=== PATIENT | male | born 1950 | race Caucasian/White ===

== ENCOUNTER 2020-04-22 11:54 | Outpatient (REF) | payer MEDICARE, SELFPAY | END 2020-04-22 11:55 | disposition home or self-care (01) | LOC: HO.10HDL 11:54 | PROVIDERS: Visit Provider Urology | DX: N40.1 Benign prostatic hyperplasia with lower urinary tract symptoms (principal); Z12.5 Encounter for screening for malignant neoplasm of prostate | CPT/HCPCS: 36415; 84153 ==

== ENCOUNTER → 2020-05-01 15:04 | Outpatient (BNVA) | payer MEDICARE, SELFPAY | PROVIDERS: PCP Internal Medicine; Visit Provider Urology | DX: N40.1 Benign prostatic hyperplasia with lower urinary tract symptoms (principal); N13.8 Other obstructive and reflux uropathy | CPT/HCPCS: 99212 ==

== ENCOUNTER 2020-11-03 16:16 | Outpatient (REF) | payer MEDICARE, SELFPAY ==
--- NOTE | ~2020-11-03 | US_ITS ---
EXAMINATION: US PELVIS LIMITED (BLADDER) CLINICAL INFORMATION: Poor urinary system. COMPARISON: None TECHNIQUE: Real-time imaging of the bladder. FINDINGS: BLADDER: The bladder wall may be slightly thickened. Bilateral ureteral jets are demonstrated. Prevoid bladder volume is 155.5 mL. Postvoid bladder volume is 53 mL. There is abnormal soft tissue seen at the base of the bladder. This probably represents lobulated contour of the prostate gland protruding into the base of the bladder. It is difficult to exclude a bladder mass. This measures 1.8 x 1.5 x 2.5 cm. PROSTATE: Prostate gland measures 2.8 x 3.5 x 2.9 cm, volume 15 mL US/US bladder IMPRESSION: Increased soft tissue at the base of the bladder, question representing lobulated contour prostate gland protruding into the base of the bladder. It is difficult to exclude a bladder mass. Slightly thickened bladder wall and small 53 mL postvoid bladder residual.
== END 2020-11-03 16:17 | disposition home or self-care (01) ==
LOC: HO.US 16:16
PROVIDERS: PCP Physician Assistant Medical; Visit Provider Urology
DX: N40.1 Benign prostatic hyperplasia with lower urinary tract symptoms (principal); N13.8 Other obstructive and reflux uropathy; R39.12 Poor urinary stream
CPT/HCPCS: 76857

== ENCOUNTER → 2020-11-04 15:28 | Outpatient (BNVA) | payer MEDICARE, SELFPAY | PROVIDERS: PCP Internal Medicine; Visit Provider Urology | DX: N40.1 Benign prostatic hyperplasia with lower urinary tract symptoms (principal); N13.8 Other obstructive and reflux uropathy | CPT/HCPCS: Q3014 ==

== ENCOUNTER 2021-04-29 10:16 | Outpatient (REF) | payer MEDICARE, SELFPAY ==
[2021-04-29 14:35] LABS: Prostate Specific Antigen 1.66 ng/mL (<0.05-4.0)
== END 2021-04-29 10:17 | disposition home or self-care (01) ==
LOC: HO.10HDL 10:16
PROVIDERS: Visit Provider Urology
DX: Z12.5 Encounter for screening for malignant neoplasm of prostate (principal); N13.8 Other obstructive and reflux uropathy; N40.1 Benign prostatic hyperplasia with lower urinary tract symptoms
CPT/HCPCS: 36415; 84153

== ENCOUNTER → 2021-05-05 14:31 | Outpatient (BNVA) | payer MEDICARE, SELFPAY | PROVIDERS: PCP Internal Medicine; Visit Provider Urology | DX: N40.1 Benign prostatic hyperplasia with lower urinary tract symptoms (principal); N13.8 Other obstructive and reflux uropathy | CPT/HCPCS: Q3014 ==

== ENCOUNTER → 2021-11-06 14:15 | Outpatient (BNVA) | payer MEDICARE, SELFPAY | PROVIDERS: PCP Internal Medicine; Visit Provider Urology | DX: N40.1 Benign prostatic hyperplasia with lower urinary tract symptoms (principal); N13.8 Other obstructive and reflux uropathy | CPT/HCPCS: 51798; 99212 ==

== ENCOUNTER 2022-05-11 08:02 | Outpatient (REF) | payer MEDICARE, SELFPAY ==
[2022-05-11 11:57] LABS: Prostate Specific Antigen 1.28 ng/mL (<0.05-4.0)
== END 2022-05-11 08:03 | disposition home or self-care (01) ==
LOC: HO.10HDL 08:02
PROVIDERS: Visit Provider Urology
DX: N40.1 Benign prostatic hyperplasia with lower urinary tract symptoms (principal); N13.8 Other obstructive and reflux uropathy; Z12.5 Encounter for screening for malignant neoplasm of prostate
CPT/HCPCS: 36415; 84153

== ENCOUNTER → 2022-05-14 15:38 | Outpatient (BNVA) | payer MEDICARE, SELFPAY | PROVIDERS: PCP Internal Medicine; Visit Provider Urology | DX: N40.1 Benign prostatic hyperplasia with lower urinary tract symptoms (principal); N13.8 Other obstructive and reflux uropathy | CPT/HCPCS: 99212 ==

== ENCOUNTER 2023-05-24 07:52 | Outpatient (REF) | payer MEDICARE, SELFPAY ==
[2023-05-24 10:02] LABS: Prostate Specific Antigen 1.12 ng/mL (<0.05-4.0)
== END 2023-05-24 07:53 | disposition home or self-care (01) ==
LOC: HO.LAB 07:52
PROVIDERS: Visit Provider Urology
DX: N40.1 Benign prostatic hyperplasia with lower urinary tract symptoms (principal); N13.8 Other obstructive and reflux uropathy; Z12.5 Encounter for screening for malignant neoplasm of prostate
CPT/HCPCS: 36415; 84153

== ENCOUNTER 2023-06-24 11:39 | Outpatient (AMB) | payer MEDICARE, SELFPAY ==
--- NOTE | 2023-06-24 11:45 | MHC.OFFVIS ---
Intake Visit Reasons: 1Y PSA(set)Confirmed Intake Note: Patient is Present for Telephone Follow Up For Urology Med: Finasteride, Tamsulosin Antibiotic Allergy:NONE Blood Thinner:None Allergies No Known Allergies [No Known Allergies*] Allergy (Verified 06/24/23 11:46) HPI Comments Details: Godwin is a pleasant male. He is a patient of Dr. Morales. He is seen for the following urologic conditions - lower urinary tract symptoms Telemedicine Evaluation 15 min Consultation Doximity Mariola Video attempted Happy with current voiding performance using combination tamsulosin 0.8 mg and finasteride Lower urinary tract symptoms Visit today is for further evaluation of lower urinary tract symptoms Recurring symptoms nocturia x1, adequate stream with effective emptying Current therapy combination therapy finasteride with tamsulosin 2 tabs Tolerating medications Imaging - 11/04 PVR 50 cc, 11/05 125 Laboratories - PSA 05/03 2.8, 05/04 3.0, 05/05 1.7, 05/06 1.3, 06/07 1.2 Therapeutic plan - his continue combination therapy PFSH Medical History Atrial fibrillation Benign prostatic hyperplasia with lower urinary tract symptoms Dyslipidemia HTN (hypertension) OA (osteoarthritis) Right knee pain Surgical History History of surgery Review of Systems Const All systems reviewed & are unremarkable except as noted in HPI and below Reports no additional complaints Resp Reports no additional complaints GI Reports no additional complaints Reports as per HPI Musc Reports no additional complaints Physical Exam Telemedicine evaluation Appropriate responses Regular breathing rate and rhythm HEENT Head: Yes normal to inspection Ears: hearing grossly normal bilaterally Eyes General: appearance normal, both eyes and all related structures Neck Neck: Yes normal visual inspection Chest Chest palpation & inspection: normal inspection of the chest Resp Effort & Inspection: normal respiratory effort and able to speak in complete sentences Telehealth Telehealth Telehealth Platform: [employer] Location of provider rendering services: practice address Location of patient: address on file Patient Identification confirmed using: Name, : Yes Telehealth method: video Patient verbally consented to treatment: Yes Patient verbally consented to billing insurance company: Yes Patient informed of any privacy concerns related to visit: Yes Minutes spent on Phone/Video with Pt.: 15 Assessment & Plan Assessment & Plan (1) BPH w urinary obs/LUTS: Code(s): N40.1 - Benign prostatic hyperplasia with lower urinary tract symptoms; N13.8 - Other obstructive and reflux uropathy Category: Medical Plan Twelve month follow-up Patient Instructions: Imaging studies, laboratory and physical exam results were discussed and reviewed in detail. No major barriers to patient understanding were identified. An opportunity to ask questions regarding the treatment plan was provided. All questions were answered. The patient expressed understanding and agreement with the above treatment plan. The patient is aware they should contact our office by phone for worsening of their current condition or the appearance of new urologic symptoms. Compliance is encouraged with any medications and followup testing that is ordered. It is a privilege to participate in the urologic care of your patient. If you have any questions or concerns regarding treatment for the above conditions, or other urologic issues, please do not hesitate to contact me. The office telephone contact is [phone]. This note is constructed using voice recognition software. While every effort has been made to ensure accuracy assembler musical equipment errors may have been included. Yours sincerely, Dr Stephon Caicedo MD, [facility] - Urology Providers of Expert, Compassionate Care for the Genitourinary System Coding Level of Care Code Tele Est Pt Level 3 (75659) Diagnoses BPH w urinary obs/LUTS N40.1; N13.8
== END 2023-06-24 12:37 | disposition home or self-care (01) ==
LOC: HO.HUSH 11:39
PROVIDERS: PCP Internal Medicine; Visit Provider Urology
DX: N40.1 Benign prostatic hyperplasia with lower urinary tract symptoms (principal); N13.8 Other obstructive and reflux uropathy
CPT/HCPCS: 99213

== ENCOUNTER → 2023-06-24 11:39 | Outpatient (BNVA) | payer MEDICARE, SELFPAY | PROVIDERS: PCP Internal Medicine; Visit Provider Urology ==

== ENCOUNTER 2024-06-26 09:52 | Outpatient (REF) | payer MEDICARE, SELFPAY ==
--- OUTSIDE RECORDS SUMMARY | 2024-06-26 10:43 | XMS_ITS | Clinical Summary ---
Author Organization [address] [place] [address] [address] [place] [address] Phone Care Team Providers Care Packing Machine Inspector Name Role Phone Jorge Torres Primary Care Provider [phone] Allergies No known active allergies Medications aspirin 81 mg EC tablet Take 81 mg by mouth daily. Active dimenhyDRINATE (DRAMAMINE) 50 mg tablet Take 50 mg by mouth at bedtime as needed. Active finasteride (PROSCAR) 5 mg tablet Take 5 mg by mouth daily. Active tamsulosin (FLOMAX) 0.4 mg 24 hr capsule Take 0.4 mg by mouth daily. Take 2 capsules= 0.8 mg daily 30 mins after same meal every day. Active torsemide (DEMADEX) 5 mg tablet Take 1 Tablet by mouth daily as needed (as directed). 07/20/2023 Active rosuvastatin (CRESTOR) 20 mg tablet TAKE 1 TABLET BY MOUTH EVERY DAY 90 tablet 1 01/27/2024 Active metoprolol tartrate (LOPRESSOR) 25 mg tablet TAKE 1.5 TABLETS BY MOUTH 2 TIMES DAILY. 270 tablet 3 02/10/2024 Active flecainide (TAMBOCOR) 100 mg tablet TAKE 1 TABLET BY MOUTH TWICE A DAY 180 tablet 1 04/13/2024 Active Active Problems Problem Noted Date Diagnosed Date (HFpEF) heart failure with p reserved ejection fraction (CMS/HCC V24, CMS/HCC V28) 07/30/2021 Overview (01/17/2024): This gentleman has chronic mild dependent ankle edema and mild left ventricular hypertrophy with indeterminate indices of diastolic dysfunction on echocardiogram. Last Assessment & Plan: Currently euvolemic on exam. I stressed the need for low-sodium diet as he is fairly noncompliant with diet and exercise. Aortic root enlargement (CMS/HCC V24) 07/30/2021 Overview (01/17/2024): Aortic enlargement by echocardiogram with maximum of 4.2 cm??. He is a non- smoker and has no history of Marfan's syndrome Last Assessment & Plan: Aortic root of 4.5 cm??. I reviewed the indications for surgery and the indications for follow-up echocardiograms. Will continue to monitor clinically and with an echocardiogram next year. Assessment & Plan (01/26/2024 10:53 AM EST): Aortic dilatation with maximum diameter 4.5 cm. He is due for an echocardiogram which we will set up for the next few months to evaluate left ventricular size and aortic root size. He does not appear to be hypertensive and he is a non-smoker. Continue healthy lifestyle. Dyspnea 10/21/2020 Benign prostatic hyperplasia with nocturia 05/02 Obesity (BMI 30.0-34.9) 09/09/2018 Bilateral carotid artery stenosis 10/04/2016 Overview (01/17/2024): Endarterectomy 2017 Assessment & Plan (01/26/2024 10:55 AM EST): No evidence of carotid restenosis. Continue lipid-lowering and healthy diet. Hyperlipidemia 09/21/2011 Assessment & Plan (01/26/2024 10:55 AM EST): Excellent lipid profile on Crestor. Continue healthy diet, regular exercise and Crestor. Hypertension 01/21/2009 Overview (01/17/2024): Primary hypertension documented in the chart but his blood pressure is always been very well controlled only on metoprolol for atrial fibrillation so I would not consider this significant diagnosis. Last Assessment & Plan: Continue low-sodium diet and metoprolol. Osteoarthritis of foot joint 11/01/2008 Overview (01/17/2024): DJD first MTP Atrial fibrillation (CMS/HCC V24, CMS/HCC V28) 0 08/19/2005 Overview (01/17/2024): Symptomatic paroxysmal atrial fibrillation that dates back to 2003. He underwent RAMIN and cardioversion. He was placed on antiarrhythmic agents including flecainide. He underwent pulmonary vein isolation in 2011 with a cryoballoon ablation which was successful for many years. He developed recurrent palpitations and was started on flecainide which helped significantly and was well-tolerated. He has a first- degree AV block and a mild IVCD.He is not anticoagulated by choice. CHADSVASC score is 2 for age and hypertension Last Assessment & Plan: Godwin is quite satisfied with his current medical regimen and the control of his atrial fibrillation. He understands the pros and cons of anticoagulation and is comfortable with aspirin given he has not had any atrial fibrillation for quite some time. Will continue to monitor for any recurrences. He is comfortable with flecainide understands small risk of proarrhythmia. Will continue metoprolol Assessment & Plan (01/26/2024 10:53 AM EST): Paroxysmal atrial fibrillation status post ablation with continue flecainide due to a single recurrence 1 year after the ablation. No recurrences in over a decade. We went through the pros and cons of stopping the flecainide and the pros and cons of anticoagulation. He does not want to rock the boat and would like to continue with the flecainide. I went over the potential to place a watchman or use an anticoagulant given his [id number] score is elevated but given he looks like he has not had any A-fib we will continue to monitor for any recurrence and then readdress the issue at that point. Meniere's disease 08/19/2005 Encounters Date Type Department Care Team Description 04/17/2024 Telephone [facility] [address] [place] [id number] Lien Hidalgo [place] 04/12/2024 3:30 PM EST Ancillary Procedure [facility] [address] [place] [phone] Atrial fibrillation, unspecified type ([facility] V24, [facility] V28); Aneurysm of ascending aorta without rupture ([facility] V24) from Last 3 Months Immunizations Name Administration Dates Next Due Influenza trivalent, 0.5mL ( Fluad) 65yo and older 11/14/2018 Influenza trivalent, 0.5mL, preservative free (Fluarix; FluLaval; Fluzone) ages 6mo and older (Afluria) 3 years and older 11/08/2012 Influenza, Unspecified 11/22/2020 [facility] SARS-CoV-2 COVID-19, mRNA, LNP-S, preservative free 12/06/2020,05/01/2020,04/12/2020 Pneumococcal polysaccharide 23 valent (Pneumovax 23) 2yo and older 10/04/2016 Td Tetanus diptheria (Tdvax) 7yo and older 05/10 Tdap Tetanus diptheria acell ular pertussis (Boostrix; Adacel) 7yo and older 09/13/2006 Surgical History Surgery Date Site/Laterality Comments HERNIA REPAIR PROCEDURE: HISTORICAL HERNIA REPAIR/ING; COMMENT: bilat OTHER SURGICAL HISTORY PROCEDURE: HISTORY OTHER; COMMENT: vein stripping left leg CAROTID ENDARTERECTOMY 10/2016 Left PROCEDURE: HISTORICAL CAROTID ENDART Medical History Medical History Date Comments Atrial fibrillation ([facility] V24, [facility] V28) DX:Atrial fibrillation (HCC) Unspecified essential hypertension DX:Unspecified essential hypertension Meniere's disease, unspecified D X:Meniere's disease, unspecified Special screening for malign ant neoplasms, colon 03/31/2006 DX:Special screening for mal ignant neoplasms, colon; COMMENT: negative Flex sig 03/31/2006. Osteoarthritis of foot joint 11/01/2008 DX: Osteoarthritis of foot joint Unspecified essential hypertension 01/21/2009 DX:Unspecified essential hypertension Esophageal reflux DX:Esophageal reflux Hypertension 01/21/2009 DX:Hypertension Family History Medical History Relation Name Comments Arthritis Brother 1 Arthritis Mother Blindness Neg Hx Cataracts Neg Hx Glaucoma Neg Hx Macular degeneration Neg Hx Strabismus Neg Hx Relation Name Status Comments Brother 1 Brother 2 Alive arthritis Brother 3 ACCIDENT Father ACCIDENT Mother (Age 84) HTN Sister 1 Alive Sister 2 Alive Sister 3 Alive Social History Tobacco Use Types Packs/Day Years Used Date Smoking Tobacco: Never Smokeless Tobacco: Never Alcohol Use Standard Drinks/Week Comments No 0 (1 standard drink = 0.6 oz pur e alcohol) Sex and Gender Information Value Date Recorded Sex Assigned at Not on file Legal Sex Male 3:48 AM EST Gender Identity Not on file Sexual Orientation Not on file Obstetrics History Last Filed Vital Signs Vital Sign Reading Time Taken Comments Blood Pressure 120/70 04/12/2024 4:06 PM EST Pulse 52 01/26/2024 10:28 AM EST Temperature - - Respiratory Rate - - Oxygen Saturation - - Inhaled Oxygen Concentration - - Weight 85.3 kg (188 lb) 04/12/2024 4:06 PM EST Height 172.7 cm (5' 8 ) 04/12/2024 4:06 PM EST Body Mass Index 28.59 04/12/2024 4:06 PM EST Plan of Treatment Upcoming Encounters Date Type Department Care Team (Late st Contact Info) Description 07/24/2024 7:40 AM EDT Office Visit [facility] [address] [place] [phone] Marce Johnson NP [address] [place] [address] Health Maintenance Due Date Last Done Comments Zoster Vaccines (1 of 2) 1998 Pneumococcal Vaccine: 50+ Years (2 of 2 - PCV) 10/04/2017 10/04/2016 Colorectal Cancer Screening: Stool Based Tests (FOBT/FIT) 01/23/2022 Depression Screening 01/23/2022 Falls Risk Assessment 01/23/2022 Medicare Annual Wellness Visit 01/23/2022 Social Influencers of Health Screening 01/23/2022 COVID-19 Vaccine ( season) 2023 01/04/2022, 12/06/2020, 05/01/2020, Additional history exists RSV Immunization Adult Patients (1 - 1-dose 75+ series) 11/19/2023 Hypertension/CHF/CAD Annual BMP Blood Test 07/18/2024 07/19/2023, 07/19/2023 Influenza Vaccine (Season Ended) 2024 11/24/2022, 11/10/2021, 11/22/2020, Additional history exists DTaP,Tdap,and Td Vaccines (3 - Td or Tdap) 05/11/2027 05/10/2017, 09/13/2006 Cholesterol Screening (Lipid Panel) 10/23/2027 10/22/2022 Hepatitis C Screening Completed 12/13/1999 HIB Vaccines Aged Out No longer eligi ble based on patient's age to complete this topic HPV Vaccines Aged Out No longer eligi ble based on patient's age to complete this topic Hepatitis A Vaccines Aged Out No long er eligible based on patient's age to complete this topic Hepatitis B Vaccines Aged Out No long er eligible based on patient's age to complete this topic IPV Vaccines Aged Out No longer eligi ble based on patient's age to complete this topic MMR Vaccines Aged Out No longer eligi ble based on patient's age to complete this topic Meningococcal ACWY Vaccine Aged Out N o longer eligible based on patient's age to complete this topic Meningococcal B Vaccine Aged Out No l onger eligible based on patient's age to complete this topic RSV Immunization Patients Under 20 months Aged Out No longer eligible based on patient's age to complete this topic Varicella Vaccines Aged Out No longer eligible based on patient's age to complete this topic Procedures Procedure Name Priority Date/Time Associated Diagnosis Comments TRANSTHORACIC ECHOCARDIOGRAM (TTE) COMPLETE Routine 04/12/2024 4:08 PM EST Atrial fibrillation, unspecified type (CMS/HCC V24, CMS/HCC V28) Aneurysm of ascending aorta without rupture (CMS/HCC V24) ANNUAL BMP BLOOD TEST Routine 07/19/2023 LIPID PANEL Routine 10/22/2022 HEPATITIS C SCREENING Routine 12/13/1999 from Last 3 Months or Most Recently Relevant to Health Maintenance Results * (ABNORMAL) TRANSTHORACIC ECHOCARDIOGRAM (TTE) COMPLETE (04/12/2024 4:08 PM EST) Left Atrium Minor [place] 5.8 cm CV PACS Left Atrium Major [place] 5.9 cm CV PACS LA Area Sys (A2C) 20 cm2 CV PACS LA Area Sys (A4C) 16 cm2 CV PACS LA Volume (BP) 43 mL CV PACS RA Area 21.1 cm2 CV PACS RA 2D Volume 60 mL CV PACS AV Regurgitation PHT 635 ms CV PACS AR Max Velocity 3.7 m/s CV PACS AV Peak Jay Jay 1.5 m/s CV PACS AV Peak Gradient 9 mmHg CV PACS AV Mean Gradient 5 mmHg CV PACS Ao VTI 37.5 cm CV PACS AV Area Continuity Equation 3.9 cm2 CV PACS AV Area Peak Velocity 3.9 cm2 CV PACS Aortic Sinus Valsalva 4.5 cm CV PACS Ascending Aorta 4.3 cm CV PACS IVSD 1.4(A) 0.6 - 1.0 cm CV PACS LVIDD 4.6 4.2 - 5.8 cm CV PACS LVIDS 2.8 2.5 - 4.0 cm CV PACS LVOT Diameter 2.6 cm CV PACS LVOT Mean Jay Jay 0.7 m/s CV PACS LVOT Mean Grad 2 mmHg CV PACS LVOT Peak VTI 27.9 cm CV PACS LVOT Peak Jay Jay 1.1 m/s CV PACS LVOT Peak Gradient 5 mmHg CV PACS LVPWD 1.2(A) 0.6 - 1.0 cm CV PACS MV E' Tissue Velocity Lateral 10 cm/s CV PACS MV E' Tissue Velocity Septal 6 cm/s CV PACS LVOT Area 5.3 cm2 CV PACS LVOT Stroke Volume 148 mL CV PACS MV Deceleration [place] 2.6 m/s2 CV PACS E Wave Deceleration Time 254(A) 119 - 242 ms CV PACS MV PHT 74 ms CV PACS MV Peak A Jay Jay 0.52 m/s CV PACS MV Peak E Jay Jay 0.67 m/s CV PACS MV Area PHT 3.0 cm2 CV PACS PV Acceleration Time 151 ms CV PACS RV Diastolic Basal Dimension 4.1 2.5 - 4.1 cm CV PACS RV S' 14 cm/s CV PACS TAPSE 31 mm CV PACS E/E' Ratio Septal 11 CV PACS E/E' Ratio Averaged 9 CV PACS LVOT Stroke Index 74 mL/m2 CV PACS Relative Wall Thickness ratio 0.52 CV PACS LVOT:AV VTI Index 0.74 CV PACS FS 39 % CV PACS LV Mass 2D 230 g CV PACS Ascending Aorta Index 2.16 cm/m2 CV PACS LVOT flow 371 mL/s CV PACS RA 2D Volume Index 30 mL/m2 CV PACS KYLE Index (VTI) 1.98 cm2/m2 CV PACS KYLE Index (Pk Jay Jay) 1.96 cm2/m2 CV PACS LVIDD Index 2.31 cm/m2 CV PACS LVIDS Index 1.41 cm/m2 CV PACS AV Velocity Ratio 0.73 CV PACS E/A Ratio 1.3 CV PACS E/E' Ratio Lateral 7 CV PACS LA Volume Index (BP) 22 mL/m2 CV PACS LV Mass Index 2D 116 g/m2 CV PACS BSA 2.02 m2 CV PACS Est. RA Pressure 8 mmHg CV PACS Anatomical Region Laterality Modality Ultrasound Narrative 04/13/2024 5:51 PM EST ?Left ventricle cavity size is normal.There is mild hypertrophy with slightly more prominent thickening of basal septum. Left ventricular systolic function is in the normal range with an ejection fraction of 55-60%.No regional LV wall motion abnormalities noted. ?Right ventricle cavity is normal. Right ventricular systolic function is normal. ?There is mild to moderate regurgitation. ?The Sinus of Valsalva is dilated (4.5 cm). The ascending aorta is dilated (4.3 cm). ?Compared to previous study of 09/08/2022, ascending aorta size slightly increased from 4.0 cm to 4.3 cm. Left Ventricle Left ventricle cavity size is normal. There is mild hypertrophy with slightly more prominent thickening of basal septum. Systolic function is normal with an ejection fraction of 55-60%. There are no regional LV wall motion abnormalities. There is no diastolic dysfunction. Right Ventricle Right ventricle cavity at upper limits of normal. Systolic function is normal. Left Atrium Left atrium cavity size is normal. Right Atrium Right atrium cavity is normal. IVC/SVC Inferior vena cava is dilated. RA pressures is estimated to be 8 mmHg (IVC diameter >21 mm and decreases >50% during inspiration). Mitral Valve The leaflets are mildly thickened. There is trace regurgitation. There is no evidence of mitral valve stenosis. Tricuspid Valve The leaflets exhibit normal excursion. There is trace regurgitation. There is no evidence of tricuspid valve stenosis. Cannot assess RVSP. Aortic Valve The aortic valve is trileaflet. There is mild to moderate regurgitation. There is no evidence of aortic valve stenosis. Pulmonic Valve Pulmonic valve structure is normal. There is no regurgitation or stenosis. Ascending Aorta The Sinus of Valsalva is dilated (4.5 cm). The ascending aorta is dilated (4.3 cm). Pericardium There is no pericardial effusion. Study Details Overall the study quality was adequate. Result [facility] Donald Lewis MD CV ECHO PROCEDURES Final Resul t * Annual BMP Blood Test (07/19/2023) Pathologist Critical access hospital Annual BMP Blood Test Abstracted Result [facility] Provider HEALTH MAINTENANCE Final Result * Lipid panel (10/22/2022) [facility] LDL/HDL Ratio 2 0 - 4 Triglycerides 74 0 - 150 mg/dL Cholesterol 153 0 - 200 mg/dL HDL 67 >=40 mg/dL LDL Cholesterol 72 0 - 100 mg/dL Blood Venous blood specimen / Unknown Result [facility] Provider LAB BLOOD ORDERABLES Katey l Result * Hepatitis C Screening (12/13/1999) Health system Hepatitis C Screening Abstracted Result [facility] Provider HEALTH MAINTENANCE Final Result from Last 3 Months or Most Recently Relevant to Health Maintenance Insurance MEDICARE [facility] Advance Directives Documents on File Type Date Recorded Patient Messaging Architect Expl anation Health Care Decision (hx) 09/14/2011 AD LLANES DIRECTIVE Health Care Decision (hx) 09/14/2011 AD LLANES DIRECTIVE Care Teams Packing Machine Inspector Relationship Specialty Start Date End Date Jorge Torres PA [address] [place] [address] PCP - General Internal Medicine 01/16/24
[2024-06-26 14:20] LABS: Prostate Specific Antigen 1.23 ng/mL (<0.05-4.0)
== END 2024-06-26 09:53 | disposition home or self-care (01) ==
LOC: HO.10HDL 09:52
PROVIDERS: Visit Provider Urology
DX: Z12.5 Encounter for screening for malignant neoplasm of prostate (principal)
CPT/HCPCS: 36415; 84153

== ENCOUNTER 2024-07-18 10:55 | Outpatient (AMB) | payer MEDICARE, SELFPAY ==
--- NOTE | 2024-07-18 10:56 | MHC.OFFVIS ---
Intake Visit Reasons: follow up/PSA/PVR Intake Note: Patient is present for PSA/PVR F/U Urology Medication:FINASTERIDE,TAMSULOSIN Antibiotic Allergy:NONE Blood Thinner:NONE Regional Operations Manager Required: No Allergies No Known Allergies [No Known Allergies*] Allergy (Verified 07/18/24 10:58) HPI Comments Details: Godwin is a pleasant male. He is a patient of Dr. Morales. He is seen for the following urologic conditions - lower urinary tract symptoms Telemedicine Evaluation 15 min Consultation [facility] Video attempted Happy with current voiding performance using combination tamsulosin 0.8 mg and finasteride Twelve month follow-up office PVR Lower urinary tract symptoms Visit today is for further evaluation of lower urinary tract symptoms Recurring symptoms nocturia x1, adequate stream with effective emptying Current therapy combination therapy finasteride with tamsulosin 2 tabs Tolerating medications Imaging - 11/04 PVR 50 cc, 11/05 125 Laboratories - PSA 05/03 2.8, 05/04 3.0, 05/05 1.7, 05/06 1.3, 06/07 1.2, 07/08 1.25 Therapeutic plan - his continue combination therapy [facility] Medical History Atrial fibrillation Benign prostatic hyperplasia with lower urinary tract symptoms Dyslipidemia HTN (hypertension) OA (osteoarthritis) Right knee pain Surgical History History of surgery Assessment & Plan Assessment & Plan (1) BPH w urinary obs/LUTS: Code(s): N40.1 - Benign prostatic hyperplasia with lower urinary tract symptoms; N13.8 - Other obstructive and reflux uropathy Category: Medical Plan 12 month follow-up PVR and PSA Orders: Orders Prostate Specific Antigen 12 Months N13.8 - Other obstructive and reflux uropathy, N40.1 - Benign prostatic hyperplasia with lower urinary tract symptoms Medications: Refilled tamsulosin 0.8 mg (2 x 0.4 mg) PO BEDTIME 90 days 180 caps 3RF N13.8 - Other obstructive and reflux uropathy, N40.1 - Benign prostatic hyperplasia with lower urinary tract symptoms finasteride 5 mg PO DAILY 90 days 90 tabs 3RF N13.8 - Other obstructive and reflux uropathy, N40.1 - Benign prostatic hyperplasia with lower urinary tract symptoms, R33.9 - Retention of urine, unspecified, R97.20 - Elevated prostate specific antigen [PSA] Patient Instructions: This note is constructed using voice recognition software. While every effort has been made to ensure accuracy yarding supervisor errors may have been included. Imaging studies, laboratory and physical exam results were discussed and reviewed in detail. No major barriers to patient understanding were identified. An opportunity to ask questions regarding the treatment plan was provided. All questions were answered. The patient expressed understanding and agreement with the above treatment plan. The patient is aware they should contact our office by phone for worsening of their current condition or the appearance of new urologic symptoms. Compliance is encouraged with any medications and followup testing that is ordered. It is a privilege to participate in the urologic care of your patient. If you have any questions or concerns regarding treatment for the above conditions, or other urologic issues, please do not hesitate to contact me. The office telephone contact is [phone]. Sincerely, Dr Stephon Caicedo MD, [facility] - Urology Compassionate Specialist Care for the Genitourinary System Coding Level of Care Code Tele Est Pt Level 4 (92275) Complex EM visit Add On G2211 Diagnoses BPH w urinary obs/LUTS N40.1; N13.8
--- OUTSIDE RECORDS SUMMARY | 2024-07-18 11:52 | XMS_ITS | Clinical Summary ---
Author Organization [address] [place] [address] Address [address] [place] [address] Phone Care Team Providers Care Chiropractic Teacher Name Role Phone Jorge Torres Primary Care Provider [phone] Allergies No known active allergies Medications aspirin [...] age and hypertension Last Assessment & Plan: Philippe is quite satisfied with his current medical [...] watchman or use an anticoagulant given his [id number] score is elevated but given he looks like he has not had any A-fib we will continue to monitor for any recurrence and then readdress the issue at that point. Meniere's disease 08/19/2005 Encounters Date Type Department Care Team Description 04/17/2024 Telephone [facility] - [address] [place] [address] Jeffery Hidalgoah, CRISTIAN from Last 3 Months Immunizations Name Administration Dates Next Due Influenza trivalent, 0.5mL ( Fluad) 65yo and older 11/14/2018 Influenza trivalent, 0.5mL, preservative free (Fluarix; FluLaval; Fluzone) ages 6mo and older (Afluria) 3 years and older 11/08/2012 Influenza, Unspecified 11/22/2020 Pfizer SARS-CoV-2 COVID-19, mRNA, LNP-S, preservative free 12/06/2020,05/01/2020,04/12/2020 [...] History Medical History Date Comments Atrial fibrillation ([facility]/HCC V24, CMS/HCC V28) DX:Atrial fibrillation (HCC) Unspecified essential hypertension [...] Description 07/24/2024 7:40 AM EDT Office Visit [facility] - [address] [place] [address] Marce Johnson NP [address] [place] [address] Health Maintenance Due Date Last [...] Procedure Name Priority Date/Time Associated Diagnosis Comments ANNUAL BMP BLOOD TEST Routine 07/19/2023 LIPID PANEL Routine 10/22/2022 HEPATITIS C SCREENING Routine 12/13/1999 from Last 3 Months or Most Recently Relevant to Health Maintenance Results * Annual BMP Blood Test (07/19/2023) [facility] Annual BMP Blood Test Abstracted [facility] Provider HEALTH MAINTENANCE Final Result * Lipid panel (10/22/2022) [facility] LDL/HDL Ratio 2 0 - 4 Triglycerides 74 0 - 150 mg/dL Cholesterol 153 0 - 200 mg/dL HDL 67 >=40 mg/dL LDL Cholesterol 72 0 - 100 mg/dL Blood Venous blood specimen / Unknown Historical Provider LAB BLOOD ORDERABLES Katey l Result * Hepatitis C Screening (12/13/1999) [facility] Hepatitis C Screening Abstracted Historical Provider HEALTH MAINTENANCE Final Result from Last 3 Months or Most Recently Relevant to Health Maintenance Insurance MEDICARE [facility] Advance Directives Documents on File Type Date Recorded Patient Sisal Picker Expl anation Health Care Decision (hx) 09/14/2011 AD LLANES DIRECTIVE Health Care Decision (hx) 09/14/2011 AD LLANES DIRECTIVE Care Teams Chiropractic Teacher Relationship Specialty Start Date End Date Jorge Torres PA [address] [place] [address] PCP - General Internal Medicine 01/16/24
== END 2024-07-18 11:27 | disposition home or self-care (01) ==
LOC: HO.HUSH 10:55
PROVIDERS: PCP Internal Medicine; Visit Provider Urology
DX: N40.1 Benign prostatic hyperplasia with lower urinary tract symptoms (principal); N13.8 Other obstructive and reflux uropathy
CPT/HCPCS: 99214; G2211

== ENCOUNTER → 2024-07-18 10:55 | Outpatient (BNVA) | payer MEDICARE, SELFPAY | PROVIDERS: PCP Internal Medicine; Visit Provider Urology ==